=== PATIENT | female | born 1995 | race Caucasian/White ===

== ENCOUNTER 2018-06-20 20:26 | Emergency (ER) | payer OTHER ==
[~2018-06-20] VITALS: Ht 157.5 cm; Wt 64.0 kg
[2018-06-20 21:57] LABS: CLARITY URINE CLEAR (CLEAR); COLOR URINE YELLOW (YELLOW); KETONES URINE NEGATIVE (NEGATIVE); LEUKOCYTE ESTERASE URINE 3+ (NEGATIVE); NITRITE URINE NEGATIVE (NEGATIVE); OCCULT BLOOD URINE TRACE (NEGATIVE); PROTEIN URINE NEGATIVE (NEGATIVE); SPECIFIC GRAVITY URINE 1.003 (1.005-1.030); UROBILINOGEN URINE 0.2 E.U./dL (0.2-1.0)
[2018-06-21] MEDS ORDERED: CYCLOBENZAPRINE 10MG TABLET PO ONE (01:00)
[2018-06-21] MEDS ORDERED: KETOROLAC 60MG/2ML VIAL IM ONE (01:00)
[2018-06-21] MEDS ORDERED: PREDNISONE 20MG TABLET PO ONE (01:00)
[2018-06-21 01:53] VITALS: BP 135/78
== END 2018-06-21 02:03 | disposition home or self-care (01) ==
LOC: ER 20:26
DX: M54.30 Sciatica, unspecified side (principal); N39.0 Urinary tract infection, site not specified; B37.3 Candidiasis of vulva and vagina; I10 Essential (primary) hypertension
CPT/HCPCS: 81003; 87086; 87106; 96372; 99283; J1885; J7512